=== PATIENT | male | born 1945 | race Caucasian/White ===

== ENCOUNTER 2025-01-13 12:45 | Emergency (ER) | payer MEDICARE, SELFPAY ==
[2025-01-13 12:47] VITALS: BP 138/61; PULSE 90; RESP 16; TEMP 36.8; O2SAT 97; BMI 26.4
[2025-01-13 13:45] LABS: Appearance Urine UA CLEAR; Bilirubin Urine UA 1+ (NEGATIVE); Color Urine UA YELLOW; Glucose Urine UA NEGATIVE (Negative); Ketones Urine UA TRACE (NEGATIVE); Leukocyte Esterase Urine UA TRACE (NEGATIVE); Nitrite Urine UA NEGATIVE (Negative); Occult Blood Urine UA NEGATIVE (Negative); Protein Urine UA NEGATIVE (Negative); Specific Gravity Urine UA 1.010 (1.000-1.035); Urobilinogen Urine UA 4.0 E.U./dL (0.2); pH Urine UA 6.5 (4.5-8.0)
[2025-01-13 14:00] LABS: Ictotest Urine Negative (Negative)
[2025-01-13 14:01] LABS: Culture Indicated Urine Cult Not Indicated
[2025-01-13 14:43] VITALS: BP 136/61; PULSE 85; RESP 17; O2SAT 98
--- NOTE | 2025-01-13 19:02 | ED_ITS ---
HPI - Male Genitourinary <Gaurav Lezama PA-C - Last Filed: 01/13/25 19:06> General Chief complaint: Urogenital-Male Stated complaint: Peeing Blood x 1 day Time Seen by Provider: 01/13/25 13:07 Source: patient Mode of arrival: Ambulatory History of Present Illness HPI Narrative: 79-year-old male presents to the ED with a few days of urinary urgency, urinary frequency. [place] when he felt an urgency to urinate, he pinched the tip of his pain is really hard to prevent himself from urinating in his pants. When he urinated, he saw some blood. Patient has seen small amounts of blood in the urine since then. No fever, chills, chest pain, shortness of breath, nausea, vomiting, flank pain. Related Data Home Medications ?Medication ?Instructions ?Recorded ?Confirmed albuterol sulfate 90 mcg/actuation 1 puff INH PRN ##8. 5 12/18/12 12/08/24 aerosol inhaler (Proventil HFA) budesonide-formoterol HFA 160 1 puff INH BID ##0 12/1812/08/24 mcg-4.5 mcg/actuation aerosol inhaler (Symbicort) lansoprazole 30 mg capsule,delayed 30 mg PO QDAY ##0 0 12/18/12 12/08/24 release montelukast 10 mg tablet 10 mg PO QDAY ##0 12/18/12 0 12/08/24 (Singulair) Previous Rx's ?Medication ?Instructions ?Recorded albuterol sulfate 90 mcg/actuation 2 puff INH QID #1 i nh 12/18/12 aerosol inhaler (Ventolin HFA) cefpodoxime 200 mg tablet 200 mg PO Q12H 10 days #20 t abs 01/13/25 Allergies Allergy/AdvReac Type Severity Reaction Status Date / Time bupivacaine (From Marcaine) Allergy Severe Redness of Verified 01/13/25 12:49 Skin lidocaine Allergy Severe Rash Verified 01/13/25 12:49 Penicillins Allergy Severe Rash Verified 01/13/25 12:49 Review of Systems <Gaurav Lezama PA-C - Last Filed: 01/13/25 19:06> Constitutional Constitutional: Denies chills, Denies fatigue, Denies fever(s), Denies frequent falls, Denies lethargy and Denies weakness Eyes Eyes: Denies change in vision, Denies eye discharge, Denies irritation and Denies loss of vision ENT Ears, Nose, Mouth, and Throat: Denies change in voice, Denies dizziness, Denies neck pain, Denies sore throat and Denies throat swelling Cardiovascular Cardiovascular: Denies chest pain, Denies irregular heart rhythm, Denies lightheadedness, Denies palpitations, Denies dyspnea, Denies dyspnea on exertion and Denies orthopnea Respiratory Respiratory: Denies cough, Denies dyspnea, Denies dyspnea on exertion and Denies wheezing Gastrointestinal Gastrointestinal: Denies abdominal pain, Denies change in bowel habits, Denies diarrhea, Denies nausea and Denies vomiting Genitourinary Genitourinary: Reports hematuria and Reports urinary frequency Comments: Soreness at the tip of the penis, urinary urgency Musculoskeletal Musculoskeletal: Denies neck pain and Denies numbness Integumentary/Breasts Skin/Breast: Denies pruritus, Denies erythema, Denies rash and Denies wounds Neurologic Neurologic: Denies behavioral changes, Denies confusion, Denies dizziness, Denies frequent falls, Denies loss of vision, Denies numbness and Denies weakness Psychiatric Psychiatric: Denies anxiety, Denies behavioral changes, Denies confusion, Denies depression, Denies homicidal ideation and Denies suicidal ideation Endocrine Endocrine: Denies fatigue, Denies flushing and Denies palpitations Hematologic/Lymphatic Hematologic/Lymphatic: Denies easy bruising Allergic/Immunologic Allergic/Immunologic: Denies urticaria, Denies throat swelling and Denies wheezing Patient History <Gaurav Lezama PA-C - Last Filed: 01/13/25 19:06> Social History Smoking Status: Smoker, status unknown Smoking Status: Smoker, status unknown Exam <Gaurav Lezama PA-C - Last Filed: 01/13/25 19:06> Narrative Exam Narrative: Const General:?cooperative, healthy appearing and comfortable [facility] Head:?normal to inspection Ears:?hearing grossly normal bilaterally Nose:?external nose normal Face and sinus:?normal facial exam and sinuses nontender Mouth:?oral mucosae normal Throat:?posterior oropharynx normal Eyes General:?appearance normal, both eyes and all related structures Neck Neck:?normal visual inspection and no lymphadenopathy noted Resp Effort & Inspection:?normal respiratory effort Auscultation:?clear to auscultation bilaterally Cardio Rate:?regular rate Rhythm:?regular rhythm External exam shows no abnormalities. There is no visualized blood or wound at the tip of the penis. Neuro General:?patient alert, patient awake and patient oriented x3 Initial Vital Signs Initial Vital Signs: Vital Signs Temperature 98.2 F 01/13/25 12:47 Pulse Rate 90 01/13/25 12:47 Respiratory Rate 16 01/13/25 12:47 Blood Pressure 138/61 01/13/25 12:47 Pulse Oximetry 97 01/13/25 12:47 Oxygen Delivery Method Room Air 01/13/25 12:47 <Leoncio Johnson MD - Last Filed: 01/13/25 19:15> Initial Vital Signs Initial Vital Signs: Vital Signs Temperature 98.2 F 01/13/25 12:47 Pulse Rate 90 01/13/25 12:47 Respiratory Rate 16 01/13/25 12:47 Blood Pressure 138/61 01/13/25 12:47 Pulse Oximetry 97 01/13/25 12:47 Oxygen Delivery Method Room Air 01/13/25 12:47 Course <Gaurav Lezama PA-C - Last Filed: 01/13/25 19:06> Orders Ordered: ED Orders 01/13/25 13:31 Ictotest Urine Stat Urinalysis and Microscopic Stat Vital Signs Vital signs: Vital Signs - 8 hr 01/13/25 12:47 01/13/25 14:43 Temperature 98.2 F Pulse Rate 90 85 Respiratory Rate 16 17 Blood Pressure 138/61 136/61 Pulse Oximetry 97 98 Oxygen Delivery Method Room Air Room Air <Leoncio Johnson MD - Last Filed: 01/13/25 19:15> Orders Ordered: ED Orders 01/13/25 13:31 Ictotest Urine Stat Urinalysis and Microscopic Stat Vital Signs Vital signs: Vital Signs - 8 hr 01/13/25 12:47 01/13/25 14:43 Temperature 98.2 F Pulse Rate 90 85 Respiratory Rate 16 17 Blood Pressure 138/61 136/61 Pulse Oximetry 97 98 Oxygen Delivery Method Room Air Room Air MDM - Male Genitourinary <Gaurav Lezama PA-C - Last Filed: 01/13/25 19:06> Lab Data Labs: Lab Results 01/13/25 Range/Units 13:31 Urine Color Yellow Urine Appearance Clear Urine pH 6.5 (4.5-8.0) Ur Specific [place] 1.010 (1.000-1.035) Urine Protein Negative (Negative) Urine Glucose (UA) Negative (Negative) g/dL Urine Ketones Trace H (NEGATIVE) Urine Occult Blood Negative (Negative) Urine Nitrate Negative (Negative) Urine Bilirubin 1+ H (NEGATIVE) Ur Bilirubin Confirm Negative (Negative) Urine Urobilinogen 4.0 H (0.2) E.U./dL Ur Leukocyte Esterase Trace H (NEGATIVE) Urine RBC None seen (0-5/HPF) Urine WBC 1-5/hpf (0-5/HPF) Ur Squamous Epith Cells 0-1 /hpf (0-5/HPF) Urine Bacteria None seen (None) Hyaline Casts 0-1/lpf (None) Ur Culture Indicated? Cult not indicated Vol Urine Centrifuged 10ml (spun) MDM Narrative Medical decision making narrative: 79-year-old male presents to the ED with a few days of urinary urgency, urinary frequency. Urine dip is positive for leukocyte esterase. There is concern for a UTI versus trauma to the tip of the urethra. Will prescribe antibiotics. Patient agrees to monitor and return to the ED if he has worsening symptoms. Medical records reviewed: Yes <Leoncio Johnson MD - Last Filed: 01/13/25 19:15> Lab Data Labs: Lab Results 01/13/25 Range/Units 13:31 Urine Color Yellow Urine Appearance Clear Urine pH 6.5 (4.5-8.0) Ur Specific [place] 1.010 (1.000-1.035) Urine Protein Negative (Negative) Urine Glucose (UA) Negative (Negative) g/dL Urine Ketones Trace H (NEGATIVE) Urine Occult Blood Negative (Negative) Urine Nitrate Negative (Negative) Urine Bilirubin 1+ H (NEGATIVE) Ur Bilirubin Confirm Negative (Negative) Urine Urobilinogen 4.0 H (0.2) E.U./dL Ur Leukocyte Esterase Trace H (NEGATIVE) Urine RBC None seen (0-5/HPF) Urine WBC 1-5/hpf (0-5/HPF) Ur Squamous Epith Cells 0-1 /hpf (0-5/HPF) Urine Bacteria None seen (None) Hyaline Casts 0-1/lpf (None) Ur Culture Indicated? Cult not indicated Vol Urine Centrifuged 10ml (spun) MDM Narrative Medical decision making narrative: 79-year-old male presents to the ED with a few days of urinary urgency, urinary frequency. Urine dip is positive for leukocyte esterase. There is concern for a UTI versus trauma to the tip of the urethra. Will prescribe antibiotics. Patient agrees to monitor and return to the ED if he has worsening symptoms. Medical records reviewed: Yes I was available for consult but did not actually see the patient. Discharge Plan Departure Patient Disposition: Home Clinical Impression: Urinary tract infection Instructions: DI for Urinary Tract Infection (UTI) Activity Restrictions/Additional Instructions: You were evaluated in the ED today for blood in the urine and some trauma to the urethra. Your urine tested positive for a urinary tract infection. You are being prescribed a course of antibiotics to take twice a day for the next 10 days. Please follow-up with your PCP as soon as possible. Return to the ED if you have worsening symptoms. Prescriptions: New cefpodoxime 200 mg tablet 200 mg PO Q12H 10 Days Qty: 20 0RF Rx Instructions: must administer with a meal/food No Action montelukast [Singulair] 10 MG tablet 10 mg PO QDAY Qty: 0 budesonide-formoterol [Symbicort] 160 MCG/4.5 MCG HFA aerosol inhaler 1 puff INH BID Qty: 0 lansoprazole 30 MG capsule,delayed release(DR/EC) 30 mg PO QDAY Qty: 0 albuterol sulfate [Proventil HFA] 90 MCG/PUFF HFA aerosol inhaler 1 puff INH PRN Qty: 8.5 albuterol sulfate [Ventolin HFA] 90 MCG/PUFF HFA aerosol inhaler 2 puff INH QID Qty: 1 0RF Stand Alone Forms: Patient Portal/API
== END 2025-01-13 14:45 | disposition home or self-care (01) ==
PROVIDERS: Emergency Provider Student in an Organized Health Care Education/Training Program
DX: N39.0 Urinary tract infection, site not specified (principal)
CPT/HCPCS: 81001; 99281; 99282